=== PATIENT | female | born 2000 | race Caucasian/White ===

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

== ENCOUNTER 2023-12-16 14:29 | Emergency (ER) | payer OTHER ==
--- NOTE | 2023-12-16 14:33 | ERPHSYRPT ---
- History of Present Illness Time Seen by Provider: 12/16/23 14:33 Historian: patient Exam Limitations: no limitations Physician History: This is an overweight 23-year-old white female who presents with right upper quadrant abdominal pain intermittently for the last few months. She states this is worsening over the last month. Patient has a history of hypertension. On 09/11/2023, patient underwent a gallbladder ultrasound which showed an unremarkable gallbladder and unremarkable biliary ductal system. On 09/20/2023 patient underwent a HIDA scan which showed a normal gallbladder ejection fraction. However, the patient's pain has been present intermittently. Patient was told by her [facility] clinic to be seen in the emergency department if her symptoms got worse. Patient has never seen a sheetmetal worker. Patient has a primary care provider, nurse practitioner Janeth. Timing/Duration: other (Intermittently over the last 3 months) Activities at Onset: none Quality: sharpness Abdominal Pain Onset Location: RUQ Pain Radiation: no radiation Severity of Pain-Max: mild Severity of Pain-Current: mild Modifying Factors: Improves With: nothing Associated Symptoms: loss of appetite, nausea Previous symptoms: same symptoms as today, no recent treatment Allergies/Adverse Reactions: amoxicillin Allergy (Verified 12/16/23 14:40) Home Medications: Furosemide 20 mg [Lasix 20 mg] 20 mg PO DAILY 12/16/23 [History] Losartan Potassium [Cozaar] 25 mg PO DAILY 12/16/23 [History] Medroxyprogesterone Acetate 150 mg IM CLARIFY 12/16/23 [History] Hx Tetanus, Diphtheria Vaccination/Date Given: Yes Hx Influenza Vaccination/Date Given: No Hx Pneumococcal Vaccination/Date Given: No Travel Risk - International Travel Have you traveled outside of the country in past 3 weeks: No - Emerging Infectious Disease Are you exhibiting symptoms associated with any current EIDs: No Symptoms: Abdominal Pain - Review of Systems Constitutional: No Symptoms Eyes: No Symptoms Ears, Nose, & Throat: No Symptoms Respiratory: No Symptoms Cardiac: No Symptoms Abdominal/Gastrointestinal: Abdominal Pain (Right upper quadrant abdominal pain), Nausea, Appetite Changes, No Vomiting, No Diarrhea Genitourinary Symptoms: No Symptoms Musculoskeletal: No Symptoms Skin: No Symptoms Neurological: No Symptoms Psychological: No Symptoms Endocrine: No Symptoms Hematologic/Lymphatic: No Symptoms Immunological/Allergic: No Symptoms All Other Systems: Reviewed and Negative - Past Medical History Pertinent Past Medical History: Yes Neurological History: No Pertinent History ENT History: No Pertinent History Cardiac History: No Pertinent History Respiratory History: No Pertinent History Endocrine Medical History: No Pertinent History Musculoskeletal History: No Pertinent History GI Medical History: No Pertinent History History: Other Psycho-Social History: No Pertinent History Female Reproductive Disorders: No Pertinent History Other Medical History: patient had asthmatic bronchitis once as a child - Past Surgical History Past Surgical History: Yes Significant Family History: no pertinent family hx - Social History Smoking Status: Never smoker Exposure to second hand smoke: No Drug Use: none Patient Lives Alone: No - Nursing Vital Signs Nursing Vital Signs: Initial Vital Signs Pulse Rate 100 H 12/16/23 14:39 Respiratory Rate 18 12/16/23 14:39 Blood Pressure 137/92 12/16/23 14:39 O2 Sat by Pulse Oximetry 98 12/16/23 14:39 Pain Scale Pain Intensity 4 - Physical Exam General Appearance: no apparent distress, alert, anxiety Eye Exam: PERRL/EOMI, eyes nml inspection Ears, Nose, Throat Exam: normal ENT inspection, moist mucous membranes Neck Exam: normal inspection, non-tender, supple, full range of motion Respiratory Exam: normal breath sounds, lungs clear, airway intact, No chest tenderness, No respiratory distress Cardiovascular Exam: regular rate/rhythm, normal heart sounds, normal peripheral pulses Gastrointestinal/Abdomen Exam: soft, normal bowel sounds, tenderness (Mild right upper quadrant tenderness to palpation), guarding, No rebound (Mild right upper quadrant to palpation) Pelvic Exam: not done Rectal Exam: not done Back Exam: normal inspection, normal range of motion, No CVA tenderness, No vertebral tenderness Extremity Exam: normal inspection, normal range of motion, pelvis stable Neurologic Exam: alert, oriented x 3, cooperative, gas compressor turbine operator II-XII nml as tested, nml cerebellar function, nml station & gait, sensation nml Skin Exam: normal color, warm, dry Lymphatic Exam: No adenopathy SpO2 Interpretation: normal O2 Delivery: Room Air - Course Nursing assessment & vital signs reviewed: Yes Ordered Tests: Active Orders 24 hr Category Date Time Status IV Insertion STAT Care 12/16/23 15:08 Active ABDOMEN AND PELVIS W/0 CONTRAS [CT] Stat Exams 12/16/23 15:08 Completed AMYLASE Stat Lab 12/16/23 15:17 Completed CBC W DIFF Stat Lab 12/16/23 15:17 Completed CMP Stat Lab 12/16/23 15:17 Completed HCG QUALITATIVE, SERUM Stat Lab 12/16/23 15:17 Completed LIPASE Stat Lab 12/16/23 15:17 Completed UA W/RFX UR CULTURE Stat Lab 12/16/23 15:10 Ordered Medication Summary Discontinued Medications Generic Name Dose Route Start Last Admin Trade Name Jazmine PRN Reason Stop Dose Admin Sodium Chloride 1,000 mls @ 999 mls/hr 12/16/23 15:08 12/16/23 16:27 Sodium Chloride 0.9% 1000 Ml IV 12/16/23 16:08 Infused .Q1H1M STA Infusion Sodium Chloride Confirm 12/16/23 15:11 Sodium Chloride 0.9% 1000 Ml Administered 12/16/23 15:12 Dose 1,000 mls @ ud .ROUTE .STK-MED ONE Ondansetron HCl 4 mg 12/16/23 15:08 12/16/23 15:12 Ondansetron Hcl 4 Mg/2 Ml Vial IV 12/16/23 15:09 4 mg STAT ONE Administration Ondansetron HCl Confirm 12/16/23 15:11 Ondansetron Hcl 4 Mg/2 Ml Vial Administered 12/16/23 15:12 Dose 4 mg .ROUTE .STK-MED ONE Lab/Rad Data: Laboratory Result Diagrams 12/16/23 15:17 12/16/23 15:17 Laboratory Results 12/16/23 12/16/23 12/16/23 Range/Units 15:17 15:17 15:17 WBC 11.8 H (3.98-10.04) x10^3/uL RBC 4.66 (3.93-5.22) x10^6/uL Hgb 13.4 (11.2-15.7) g/dL Hct 39.6 (34.1-44.9) % MCV 85.0 (79.4-94.8) fL MCH 28.8 (25.6-32.2) pg MCHC 33.8 (32.2-35.5) g/dL RDW 12.1 (11.7-14.4) % Plt Count 312 (182-369) x10^3/uL MPV 9.9 (9.4-12.3) fL Gran % 62.3 (34.0-71.1) % Immature Gran % (Auto) 0.3 (0.001-0.429) % Nucleat RBC Rel Count 0.0 (0.00-0.2) % Eos # (Auto) 0.26 (0.04-0.36) x10^3/uL Immature Gran # (Auto) 0.04 H (0.001-0.031) x10^3u/L Absolute Lymphs (auto) 3.18 (1.18-3.74) x10^3/uL Absolute Monos (auto) 0.91 H (0.24-0.86) x10^3/uL Absolute Nucleated RBC 0.00 (0.00-0.012) x10^3u/L Lymphocytes % 27.0 (19.3-51.7) % Monocytes % 7.7 (4.7-12.5) % Eosinophils % 2.2 (0.7-5.8) % Basophils % 0.5 (0.1-1.2) % Absolute Granulocytes 7.34 H (1.56-6.13) x10^3/uL Basophils # 0.06 (0.01-0.08) x10^3/uL Sodium 140 (135-145) mmol/L Potassium 3.7 (3.5-5.1) mmol/L Chloride 111 H (98-107) mmol/L Carbon Dioxide 21 L (22-30) mmol/L Anion Gap 12.6 (5-15) MEQ/L BUN 11 (7-17) mg/dL Creatinine 0.67 (0.52-1.04) mg/dL Estimated GFR 126.7 ML/MIN Glucose 112 H (74-106) mg/dL Calcium 9.4 (8.4-10.2) mg/dL Total Bilirubin 0.30 (0.2-1.3) mg/dL AST 29 (14-36) U/L ALT 24 (0-35) U/L Alkaline Phosphatase 74 (38-126) U/L Serum Total Protein 7.4 (6.3-8.2) g/dL Albumin 3.9 (3.5-5.0) g/dL Amylase 73 (30-110) U/L Lipase 128 (23-300) U/L Serum HCG, Qual NEGATIVE (NEGATIVE) - Progress Progress: unchanged Progress Note: 12/16/23 16:29 My medical decision making and the assignment of moderate complexity to this patient's medical issue today is based on review of the patient's past medical history, review the patient's medication list, review of patient drug allergy list, history present illness and physical findings on examination. The workup in this patient includes placement of intravenous line, infusion of normal saline solution, infusion of Zofran intravenously, CBC, CMP, amylase, lipase, urinalysis, test, CT scan of the abdomen pelvis without contrast. Differential diagnosis includes but is not limited to pancreatitis, jayy cystitis, colitis, ileitis, appendicitis 12/16/23 17:05 I interpreted the patient's laboratory data results. Based on the laboratory data results, the patient does not have any acute, emergent medical issue. The CT scan of the abdomen pelvis without contrast was interpreted by the radiologist and I reviewed the impression. The impression shows a contracted gallbladder without gallstones. Normal appendix. A large pelvic cystic mass (9.2 x 11.7 x 12.9 cm) likely ovarian in etiology. Mild fecal stasis. No free air or free fluid 12/16/23 17:09 Counseled pt/family regarding: lab results, diagnosis, need for follow-up, rad results Medical Desision Making - Diagnostic Testing Diagnostic test were ordered, analyzed, and reviewed by me: Yes Radiological Interpretation: Reviewed by me, Teleradiologist Report - Risk of complications Low Risk: Low risk of morbidity from additional dx testing or treatment - Departure Departure Disposition: Home Clinical Impression: Right upper quadrant abdominal pain, Pelvic mass in female Condition: Stable Critical Care Time: No Referrals: TONG SALAS NP [Primary Care Provider] - Follow up/PCP as directed Additional Instructions: Avoid fatty greasy spicy foods. Use Tylenol and ibuprofen for pain control. Follow-up in the radiology department at scheduled ultrasound date and time.
[2023-12-16] MEDS ORDERED: Zofran 4 MG/2 ML VIAL ONE (15:11)
[2023-12-16] MEDS ORDERED: Sodium Chloride 0.9% 1000 ML 1,000 ML ONE (15:11)
[2023-12-16] MEDS: Zofran 4 MG/2 ML VIAL IV ONE (15:12)
[2023-12-16] MEDS: Sodium Chloride 0.9% 1000 ML 1,000 ML IV STA (15:12)
[2023-12-16 15:17] LABS: Absolute Neutrophil Ct (ANC) 7.34 x10^3/uL (1.56-6.13); BASOPHIL % 0.5 % (0.1-1.2); Basophil (Absolute #) 0.06 x10^3/uL (0.01-0.08); Eosinophil % 2.2 % (0.7-5.8); Eosinophil (Absolute #) 0.26 x10^3/uL (0.04-0.36); Hematocrit 39.6 % (34.1-44.9); Hemoglobin 13.4 g/dL (11.2-15.7); IMMATURE GRAN # 0.04 x10^3u/L (0.001-0.031); IMMATURE GRAN % 0.3 % (0.001-0.429); Lymphocyte (Absolute #) 3.18 x10^3/uL (1.18-3.74); Mean Corpuscular Hemoglobin 28.8 pg (25.6-32.2); Mean Corpuscular Hgb Concent. 33.8 g/dL (32.2-35.5); Mean Platelet Volume 9.9 fL (9.4-12.3); Monocyte (Absolute #) 0.91 x10^3/uL (0.24-0.86); Monocytes % 7.7 % (4.7-12.5); Neutrophil % 62.3 % (34.0-71.1); Platelet Count 312 x10^3/uL (182-369); Red Blood Count 4.66 x10^6/uL (3.93-5.22); Red Cell Distribution Width 12.1 % (11.7-14.4); White Blood Count 11.8 x10^3/uL (3.98-10.04)
[2023-12-16 15:21] LABS: HCG SERUM TEST NEGATIVE (NEGATIVE)
[2023-12-16 15:28] LABS: ALBUMIN 3.9 g/dL (3.5-5.0); ANION GAP 12.6 MEQ/L (5-15); BILIRUBIN,TOTAL 0.3 mg/dL (0.2-1.3); Calcium 9.4 mg/dL (8.4-10.2); Creatinine 1 0.67 mg/dL (0.52-1.04); EST GLOMERULAR FILTRATION RATE 126.7 ML/MIN; Potassium 3.7 mmol/L (3.5-5.1); Total Protein 7.4 g/dL (6.3-8.2)
--- NOTE | 2023-12-16 16:33 | XRAY ---
Indication: Intermittent right lower quadrant pain 1 month. Multiple contiguous axial images obtained through the abdomen and pelvis without contrast. Comparison: None Lung bases clear with incidental tiny right middle lobe calcified granuloma. Heart not enlarged. Small right infrahilar calcified nodes. Stomach is distended with food/fluid. Gallbladder contracted without gallstones. Noncontrasted stomach and bowel loops appear nonobstructed with normal appendix. Mild diffuse scattered colonic fecal debris throughout. Pelvis demonstrates 9.2 x 11.7 x 12.9 cm midline cystic mass, probably ovary in etiology and effaces urinary bladder. No free fluid/air. Remaining liver, gallbladder, pancreas, spleen, adrenal glands, kidneys, ureters, bladder, uterus, and aorta are unremarkable for noncontrast exam. Osseous structures intact with incidental small T12-L2 Schmorl nodes. Impression: 1. Large pelvic cystic mass as detailed, probably ovary in etiology. Pelvic sonogram may yield further information. 2. Mild diffuse fecal stasis. 3. Incidental multilevel Schmorl nodes and old granulomatous disease.
[2023-12-16 17:06] VITALS: BP 94/68; PULSE 76; RESP 22; O2SAT 98
== END 2023-12-16 17:29 | disposition home or self-care (01) ==
LOC: ED 14:29
DX: R10.11 Right upper quadrant pain (principal); R93.5 Abnormal findings on diagnostic imaging of other abdominal regions, including retroperitoneum; I10 Essential (primary) hypertension; Z79.899 Other long term (current) drug therapy
CPT/HCPCS: 36000; 36415; 74176; 80053; 82150; 83690; 84703; 85025; 96374; 99284; J2405